=== PATIENT | male | born 1980 | race Caucasian/White ===

== ENCOUNTER → 2016-10-28 | Emergency (ER) | payer MEDICAID ==
[~2016-10-28] VITALS: Ht 177.8 cm; Wt 86.2 kg
== END ==
LOC: ED 08:42
DX: S50.812A Abrasion of left forearm, initial encounter (principal); F17.200 Nicotine dependence, unspecified, uncomplicated; V00.131A Fall from skateboard, initial encounter; Z90.49 Acquired absence of other specified parts of digestive tract; Z88.8 Allergy status to other drugs, medicaments and biological substances
CPT/HCPCS: 71010; 73030; 73080; 73110; 80053; 81001; 85025; 96374; 99284; J1885; J7030

== ENCOUNTER 2024-04-18 15:46 | Emergency (ER) | payer SELFPAY ==
[~2024-04-18] VITALS: Ht 177.8 cm; Wt 94.3 kg
--- OUTSIDE RECORDS SUMMARY | 2024-04-18 15:53 | XMS ---
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 Navi VISIT COUNT (12 MO.) 1 ALVERTO Stevens TOTAL 1 NOTE: Visits indicate total known visits. ED/UCC VISIT TRACKING (12 MO.) 04/18/2024 15:47 ALVERTO Brown [place] TYPE: Emergency COMPLAINT: - SKIN ISSUE INPATIENT VISIT TRACKING (12 MO.) No inpatient visits to display in this time frame [email or web address]
[2024-04-18] MEDS ORDERED: CEFAZOLIN SOD 1,000 MG/10 ML VIAL IM ONE ×2 (17:00→17:15)
[2024-04-18] MEDS ORDERED: IBUPROFEN 600 MG TAB PO ONE (17:15)
[2024-04-18] MEDS ORDERED: BACTRIM DS TAB1 EACH PO (17:42)
[2024-04-18] MEDS ORDERED: CEPHALEXIN500 M1 PO (17:44)
[2024-04-18] MEDS ORDERED: ACETAMINOPHEN 500 MG TAB PO ONE (17:45)
[2024-04-18] MEDS ORDERED: TRAMADOL HCL 50 MG TAB PO ONE (17:45)
[2024-04-18 18:20] VITALS: BP 127/96
== END 2024-04-18 18:20 | disposition home or self-care (01) ==
LOC: ED 15:46
DX: L03.114 Cellulitis of left upper limb (principal); F17.200 Nicotine dependence, unspecified, uncomplicated; Z88.5 Allergy status to narcotic agent
CPT/HCPCS: 73080; 96372; 99283; 99406; A9270; J0690